=== PATIENT | male | born 1970 | race Caucasian/White ===

== ENCOUNTER 2017-05-09 09:56 | Inpatient (IN) | payer OTHER, BC ==
[2017-05-09] MEDS ORDERED: Ondansetron HCl/PF 4 MG/2 ML Vial ONE (11:00)
[2017-05-09 11:04] LABS: #Basophils 0.1 thou/uL (0.0-0.2); #Eosinphils 0.1 thou/uL (0.0-0.7); #Lymphocytes 1.2 thou/uL (1.20-3.40); #Monocytes 0.8 thou/uL (0.11-0.59); #Neutrophils 10.8 thou/uL (1.40-6.50); %Basophils 0.4 % (0.0-1.0); %Eosinophils 0.5 % (0.0-10.0); %Monocytes 6.3 % (0.0-10.0); %Neutrophils 83.8 % (42.0-75.0); Hemoglobin 16.3 g/dL (14.0-18.0); Mean Corpuscular HGB CONC 33.3 g/dL (32.0-36.0); Mean Corpuscular Hemoglobin 33.1 pg (27.0-31.0); Mean Corpuscular Volume 99.4 fl (80.0-94.0); Mean Platelet Volume 7.2 fL (7.4-10.4); Platelet Count 267 thou/uL (130-400); RBC Distribution Width 11.5 % (11.5-14.5); Red Blood Cell (RBC) Count 4.93 mill/uL (4.70-6.10); White Blood Cell (WBC) Count 12.9 thou/uL (4.8-10.8)
[2017-05-09 11:10] LABS: PTT 27.3 SEC (22.9-36.1)
[2017-05-09 11:15] LABS: INR-International Normal Ratio 1.1; Prothrombin Time 14.3 SEC (12.0-14.7)
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
[2017-05-09 11:28] LABS: ALT (SGPT) 28 U/L (8-55); AST (SGOT) 29 U/L (5-34); Alcohol Less than 10 mg/dL (Less than 10); Alkaline Phosphatase 84 U/L (40-150); Anion Gap 10 mmol/L (10-20); BUN (Urea Nitrogen) 20 mg/dL (8.9-20.6); Bilirubin, Total 0.8 mg/dL (0.2-1.2); Calc. Creatinine Clearance 0 mL/min (70-130); Calcium 8.9 mg/dL (7.8-10.44); Carbon Dioxide 24 mmol/L (22-29); Chloride 108 mmol/L (98-107); Estimated GFR-MDRD Greater than 90; Globulin 2.8 g/dL (2.4-3.5); Glucose 104 mg/dL (70-105); Potassium 4.3 mmol/L (3.5-5.1); Protein, Total 6.8 g/dL (6.0-8.3); Sodium 138 mmol/L (136-145)
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
[2017-05-09] MEDS ORDERED: Ketorolac Tromethamine 30 MG/ML VIAL ONE (11:37)
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
[2017-05-09] MEDS ORDERED: hydrALAZINE 20 MG/ML VIAL SLOW IVP PRN (12:19)
[2017-05-09] MEDS ORDERED: Dextrose 5% in Water 1,000 ML IV PRN (12:19)
[2017-05-09] MEDS ORDERED: Dextrose 50% Abboject 50 ML SYRINGE SLOW IVP PRN (12:19)
[2017-05-09] MEDS ORDERED: Ondansetron ODT 4 MG TAB PO PRN (12:19)
[2017-05-09] MEDS ORDERED: Rib Fracture Protocol PO SCH (12:30)
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
[2017-05-09] MEDS ORDERED: ISOVUE-370 76%-LOCM 1 ML ONE (12:46)
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
[2017-05-09] MEDS: Gabapentin 300 MG CAP PO SCH ×2 (15:26→21:33)
[2017-05-09] MEDS: Ibuprofen 800 MG TAB PO SCH ×2 (15:26→21:33)
[2017-05-09] MEDS: Cyclobenzaprine 10 MG TAB PO PRN (15:26)
[2017-05-09] MEDS: Acetaminophen 500 MG TAB PO SCH (18:22)
[2017-05-09] MEDS: traMADol HCl 50 MG TAB PO SCH (18:22)
[2017-05-09 18:43] VITALS: BMI 27.8
[2017-05-10] MEDS: Acetaminophen 500 MG TAB PO SCH ×3 (00:56→11:20)
[2017-05-10] MEDS: traMADol HCl 50 MG TAB PO SCH ×3 (00:56→11:19)
[2017-05-10] MEDS: Cyclobenzaprine 10 MG TAB PO PRN (06:52)
[2017-05-10] MEDS: Ibuprofen 800 MG TAB PO SCH (06:52)
[2017-05-10] MEDS: Gabapentin 300 MG CAP PO SCH (09:34)
[2017-05-10 12:49] VITALS: BP 110/80; TEMP 97.7
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
== END 2017-05-10 14:55 | disposition home or self-care (01) | DRG 552 ==
LOC: ERS 09:56 → SURG A 12:44
PROVIDERS: ADMIT Surgery; ATTEND Surgery
DX: S32.029A Unspecified fracture of second lumbar vertebra, initial encounter for closed fracture (principal); G89.11 Acute pain due to trauma; V44.5XXA Car driver injured in collision with heavy transport vehicle or bus in traffic accident, initial encounter
CPT/HCPCS: 36415; 70450; 71045; 72125; 72170; 74177; 80053; 80307; 83605; 85025; 85610; 85730; 94640; 96361; 96374; 96375; G0390; G8978-GP-CJ; G8979-GP-CJ; G8980-GP-CJ; J1885; J2270; J2405; J7620